=== PATIENT | male | born 1955 | race Caucasian/White ===

== ENCOUNTER 2017-02-22 13:31 | Emergency (ER) | payer OTHER ==
[2017-02-22 13:39] VITALS: BP 178/101
[2017-02-22] MEDS ORDERED: DEXAMETHASONE 10 MG/ML VIAL PO STA (13:58)
--- NOTE | 2017-02-22 14:01 | ED Physician Documentation ---
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 He felt the illness progressed into his chest and he has had muscle aches and pains feels generally ill has developed some diarrhea as well. Review of Systems Constitutional: reports: Chills, Myalgias, Sweats. denies: Fever Eyes: denies: Decreased vision Ears: denies: Ear pain Nose: reports: Rhinorrhea / runny nose, Congestion Throat: denies: Sore throat Cardiac: denies: Chest pain / pressure, Palpitations Respiratory: reports: Cough. denies: Dyspnea GI: reports: Diarrhea. denies: Abdominal Pain, Nausea, Vomiting : reports: Frequency. denies: Dysuria PD PAST MEDICAL HISTORY - Past Medical History Past Medical History: Yes Cardiovascular: Hypertension - Past Surgical History Past Surgical History: Yes General: Hiatal hernia repair - Present Medications Home Medications: Ambulatory Orders Medication Instructions Recorded Confirmed Atenolol [Tenormin] 25 mg PO DAILY 02/22/13 02/22/17 Furosemide [Lasix] 20 mg PO DAILY 02/22/13 02/22/17 Azithromycin [Zithromax] 250 mg PO DAILY #6 tablet 02/22/17 Cholecalciferol (Vitamin D3) 2,000 units PO DAILY 02/22/17 02/22/17 [Vitamin D3] Glipizide 25 mg PO DAILY 02/22/17 02/22/17 - Allergies Allergies/Adverse Reactions: Allergies Allergy/AdvReac Type Severity Reaction Status Date / Time No Known Drug Allergies Allergy Verified 02/22/17 13:38 - Social History Does the pt smoke?: No Smoking Status: Never smoker Does the pt drink ETOH?: No Does the pt have substance abuse?: No - Immunizations Immunizations are current?: No Immunizations: TDAP >10years/unknown PD ED PE NORMAL - Vitals Vital signs reviewed: Yes (Hypertensive) - General General: No acute distress, Well developed/nourished - HEENT HEENT: Atraumatic, PERRL, EOMI, Other - Neck Neck: Supple, no meningeal sign, No bony TTP - Cardiac Cardiac: RRR, No murmur - Respiratory Respiratory: No respiratory distress, Clear bilaterally - Abdomen Abdomen: Soft, Non tender - Back Back: No CVA TTP, No spinal TTP - Derm Derm: Normal color, Warm and dry, No rash - Extremities Extremities: No deformity, No edema - Neuro Neuro: No motor deficit, No sensory deficit - Psych Psych: Normal mood, Normal affect Results - Vitals Vitals: Vital Signs - 24 hr 02/22/17 13:35 Temperature 36.0 C L Heart Rate 64 Respiratory 20 Rate Blood Pressure 178/101 H O2 Saturation 97 Oxygen O2 Source Room air PD MEDICAL DECISION MAKING - ED course Complexity details: reviewed old records, considered differential, d/w patient ED course: 61-year-old male with a nonproductive cough and myalgiasOtitis media on examination. He does have a history of diabetes. He is on Lasix. I have asked patient to stop his Lasix been ill and he will check his blood sugars. He is given dexamethasone orally and we will place him on some azithromycin. I have encouraged him to hydrate excessively as he may have some elevation in his blood glucose with the dexamethasone. Departure - Departure Disposition: 01 Home, Self Care Clinical Impression: Otitis media Qualifiers: Otitis media type: suppurative Chronicity: acute Laterality: bilateral Recurrence: not specified as recurrent Spontaneous tympanic membrane rupture: without spontaneous rupture Qualified Code(s): H66.003 - Acute suppurative otitis media without spontaneous rupture of ear drum, bilateral Condition: Stable Instructions: ED Otitis Media Acute Adult Follow-Up: Kirit Parada MD [Primary Care Provider] - Prescriptions: Azithromycin [Zithromax] 250 mg PO DAILY #6 tablet Comments: Today it appears you have infection in both middle ears. This should improve over the next 2-3 days. While you are ill do not take your lasix as you are likely to get excessively dehydrated. Drink extra fluids. Forms: Activity restrictions
[2017-02-22] MEDS ORDERED: CHERRY SYRUP 10 ML UDC PO ONE (14:12)
[2017-02-22] MEDS ORDERED: DEXAMETHASONE 10 MG/ML VIAL ONE (14:12)
== END 2017-02-22 14:11 | disposition home or self-care (01) ==
LOC: ED 13:31
DX: H66.003 Acute suppurative otitis media without spontaneous rupture of ear drum, bilateral (principal); I10 Essential (primary) hypertension
CPT/HCPCS: 99283; A9270

== ENCOUNTER 2021-07-12 10:53 | Outpatient (CLI) | payer OTHER ==
--- NOTE | 2021-07-12 12:50 | XRAY Report ---
PROCEDURE: Knee 3 View RT INDICATIONS: KNEE PAIN TECHNIQUE: 3 views of the right knee(s) were acquired. COMPARISON: X-ray of the right knee 4 views, 10/31/2009 and 05/09/2009. FINDINGS: Bones: Old patellar fracture with internal fixation. No fractures or dislocations. No suspicious armin ny lesions. Mild degenerative joint disease. Soft tissues: No joint effusion. No suspicious soft tissue calcifications. IMPRESSION: 1. Old patellar fracture with internal fixation. 2. Mild degenerative joint disease. Reviewed by: Pradeep Butt MD on 07/12/2021 12:48 PM PST Approved by: Pradeep Butt MD on 07/12/2021 12:48 PM PST Station ID: [id number]
== END 2021-07-12 10:54 | disposition home or self-care (01) ==
LOC: DI 10:53
PROVIDERS: ATTEND Orthopaedic Surgery
DX: M17.11 Unilateral primary osteoarthritis, right knee (principal); Z87.81 Personal history of (healed) traumatic fracture

== ENCOUNTER 2024-06-21 11:42 | Inpatient (IN) ==
--- NOTE | 2024-06-21 13:18 | XRAY Report ---
PROCEDURE: XR Hip w/Pelvis 2-3V RT INDICATIONS: hip inj TECHNIQUE: 2 views of the hip were acquired. COMPARISON: None. FINDINGS: Bones: Cortical irregularity involving the lateral aspect of the right femoral head neck junction po ssibly representing a subcapital femoral neck fracture. No suspicious osseous lesion. Degenerative ch anges of the bilateral hips. Soft tissues: No suspicious soft tissue calcifications or masses. IMPRESSION: Possible nondisplaced subcapital femoral neck fracture of the proximal right femur. Consider further evaluation with CT to further evaluate. Reviewed by: Chet Vásquez MD on 06/21/2024 1:16 PM PST Approved by: Chet Vásquez MD on 06/21/2024 1:16 PM PST Station ID: [id number]
--- NOTE | 2024-06-21 13:18 | XRAY Report ---
PROCEDURE: XR Shoulder 2+V LT INDICATIONS: TRAUMA TECHNIQUE: 3 views of the shoulder were acquired. COMPARISON: None. FINDINGS: Bones: No acute fractures or dislocations. No suspicious bony lesions. Visualized ribs appear inta ct. Degenerative changes of the left acromioclavicular joint. Acromioclavicular and coracoclavicular intervals are maintained. Soft tissues: No suspicious soft tissue calcifications. The visualized lungs are within normal limi ts. IMPRESSION: No acute bony abnormality. Degenerative changes of the left acromioclavicular joint. If there is persistent clinical concern for a radiographically occult fracture, recommend repeat imag ing in 10 to 14 days with immobilization as clinically indicated. Reviewed by: Chet Vásquez MD on 06/21/2024 1:17 PM PST Approved by: Chet Vásquez MD on 06/21/2024 1:17 PM PST Station ID: [id number]
--- NOTE | 2024-06-21 13:21 | ED Physician Documentation ---
History of Present Illness Stated complaint Stated Complaint: LT SHOULDER PX, RT HIP PX Chief complaint Chief Complaint: Trauma Ext Additonal information Additional information: He has a longstanding work-related knee injury, has had 1 surgery and is slated for another. This was all related to a prior L&I claim with a work-related injury he says. About a week ago he was walking down a hill and his bad knee gave out on him and he fell and hit his left shoulder on the ground and also heard a pop in the right hip. No increase in his usual knee pain. His orthopedist is Dr. Shahid Arriola at [facility]. He declines anything for pain other than Tylenol right now. He is able to walk with a walker but usually is using a cane. Meds/Allgy Home Medications Ambulatory Orders Medication Instructions Recorded Confirmed cholecalciferol (vitamin D3) 50 2,000 units PO DAILY 02/22/17 06/21/24 mcg (2,000 unit) capsule (Vitamin D3) amlodipine 5 mg tablet (Norvasc) 5 mg PO DAILY 06/21/24 06/21/24 atorvastatin 10 mg tablet (Lipitor) 10 mg PO DAILY 06/21/24 06/21/24 empagliflozin 25 mg tablet 12.5 mg PO DAILY 06/21/24 06/21/24 glimepiride 4 mg tablet 4 mg PO DAILY 06/21/24 06/21/24 losartan 100 mg tablet 100 mg PO DAILY 06/21/24 06/21/24 sitagliptin 25 mg tablet 25 mg PO DAILY 06/21/24 06/21/24 Allergies Allergies Allergy/AdvReac Type Severity Reaction Status Date / Time No Known Drug Allergies Allergy Verified 06/21/24 12:15 [facility] Surgical History Surgical History (Updated 06/21/24 @ 13:32 by Annie Lyons, BAKARI, BSN) History of total right knee replacement Social History Social History Smoking Status: Never smoker Relationship: Do you feel safe in your home environment?: Yes Suffered physical, verbal, emotional, or financial abuse?: No History of Abuse: No Exam Constitutional normal general appearance and no apparent distress Extremities The left shoulder is nontender but he can only abduct to about 90 degrees. Right knee nontender. Quite tender over the right hip and a lot of pain with internal or external rotation. Results Vitals Vitals: Vital Signs - 24 hr 06/21/24 12:16 06/21/24 13:36 06/21/24 14:06 Temperature 36.2 C L Temperature Source Temporal Artery Scan Pulse Rate 76 Respiratory Rate 18 Blood Pressure 180/99 H O2 Saturation 98 O2 Source Room air Pain Intensity 9 9 3 06/21/24 15:42 06/21/24 18:23 06/21/24 19:21 Temperature Temperature Source Pulse Rate 65 80 Respiratory Rate 15 18 Blood Pressure 173/91 H 155/90 H O2 Saturation 97 98 O2 Source Room air Room air Pain Intensity 9 9 Oxygen O2 Source Room air Labs Labs: Laboratory Tests 06/21/24 14:43 WBC 12.9 H RBC 5.77 Hgb 16.3 Hct 51.0 MCV 88.4 MCH 28.2 MCHC 32.0 RDW 14.0 Plt Count 263 MPV 10.7 Neut # (Auto) 9.3 H Lymph # (Auto) 2.5 Sheridan # (Auto) 0.8 Eos # (Auto) 0.1 Baso # (Auto) 0.1 Absolute Nucleated RBC 0.00 Nucleated RBC % 0.0 PT 13.6 H INR 1.3 H Sodium 138 Potassium 3.9 Chloride 104 Carbon Dioxide 25 Anion Gap 9.0 BUN 22 H Creatinine 0.9 Estimated GFR (MDRD) 84 L Glucose 127 H Calcium 9.7 Rads (name of study) X-ray of the left shoulder demonstrates degenerative changes of the AC joint without fracture: Relevant Findings:: Final report received and EMP independent interpre tation of test Right hip x-ray concerning for a nondisplaced subcapital femoral neck fracture: Relevant Findings:: Final report received and EMP independent interpretation of test CT R Hip: Relevant Findings:: Final report received and EMP independent interpretation of test Interpretation: Comminuted mildly displaced fracture of the right greater trochanter with extension to the lateral aspect of the femoral neck. The medial cortex of the femoral neck is intact. PD Medical Decision Making ED course ED course: He presents after a fall about a week ago injuring his hip and shoulder. The shoulder x-ray was negative but the hip x-ray was concerning for a nondisplaced fracture. The hip CT does confirm a hip fracture. While we have orthopedics on, Dr. Haynes is not adept at hip fractures and recommended transfer. The patient was wanting to transfer anyway as he sees Dr. Arriola at [facility]. Spoke With his orthopedist, Dr. Arriola at [facility] who agrees with transfer and defers to the medicine service for admission. At approximately 4:20 PM the health screening unit registered nurse notified me that [facility] was pretty full and they were encouraging us to "look elsewhere." I discussed this with the patient who would prefer to wait as he is well-established and prefers Dr. Arriola. In our previous conversation Dr. Arriola had mentioned potentially an ED to ED transfer, at approximately 5:15 PM I spoke with Dr. Madrigal, the on-call ED physician at [facility] who is willing to accept but wanted to make sure the owens that be were okay with that and will call me back. Subsequently notified by nursing staff that they do not have capacity and they are emergency department either. Discussed with patient, he is still wanting to wait as opposed to broaden the search to other facilities. Given current hospital capacity in the region I am not sure expanding the search to other facilities would be necessarily quicker anyways. Care to overnight emergency physician at 10 PM shift change pending eventual transfer. Discharge Plan Discharge Patient Disposition: 02 Transfer Acute Care Hosp Condition: Stable Clinical Impression: Closed fracture of right hip Qualifiers: Encounter type: initial encounter Qualified Code(s): S72.001A - Fracture of unspecified part of neck of right femur, initial encounter for closed fracture Left shoulder strain Qualifiers: Encounter type: initial encounter Qualified Code(s): S46.912A - Strain of unspecified muscle, fascia and tendon at shoulder and upper arm level, left arm, initial encounter Stand Alone Forms: PCP List
[2024-06-21] MEDS: ACETAMINOPHEN 500 MG TABLET PO STA (13:36)
[2024-06-21 14:50] LABS: BASOPHILS # (AUTO) 0.1 10^3/uL (0.0-0.1); BASOPHILS % (AUTO) 0.5 %; EOSINOPHILS # (AUTO) 0.1 10^3/uL (0.0-0.7); EOSINOPHILS % (AUTO) 0.5 %; HGB - HEMOGLOBIN 16.3 g/dL (14.0-18.0); LYMPHOCYTES # (AUTO) 2.5 10^3/uL (1.5-3.5); LYMPHOCYTES % (AUTO) 19.6 %; MEAN CORPUSCULAR HEMOGLOBIN 28.2 pg (27.0-31.0); MEAN CORPUSCULAR VOLUME 88.4 fL (80.0-94.0); MEAN PLATELET VOLUME 10.7 fL (7.4-11.4); MONOCYTES # (AUTO) 0.8 10^3/uL (0.0-1.0); MONOCYTES % (AUTO) 6.4 %; NEUTROPHILS # (AUTO) 9.3 10^3/uL (1.5-6.6); NEUTROPHILS % (AUTO) 72.6 %; PLT - PLATELET COUNT 263 10^3/uL (130-450); RED BLOOD COUNT 5.77 10^6/uL (4.70-6.10); WHITE BLOOD COUNT 12.9 x10^3/uL (4.8-10.8)
[2024-06-21 14:57] LABS: INR 1.3 (0.8-1.2); PT - PROTHROMBIN TIME 13.6 secs (9.9-12.6)
[2024-06-21 15:09] LABS: CALCIUM 9.7 mg/dL (8.5-10.3); CREATININE 0.9 mg/dL (0.6-1.3); POTASSIUM 3.9 mmol/L (3.5-4.5)
--- NOTE | 2024-06-21 15:10 | CT Report ---
PROCEDURE: CT Lower Extremity RT WO INDICATIONS: hip inj, abn XR TECHNIQUE: Noncontrast 3-mm axial sections acquired from the distal tibial shaft to the talar dome, with coronal and sagittal reformats. For radiation dose reduction, the following was used: automated exposure c ontrol, adjustment of mA and/or kV according to patient size. COMPARISON: Pelvis x-ray 06/21/2024. FINDINGS: Image quality: Excellent. Bones: Comminuted mildly displaced fracture of the greater trochanter with extension to the lateral aspect of the femoral neck. The medial cortex of the femoral neck is intact. Soft tissues: Fat stranding around the fracture. No significant hematomas. Fat-containing right ingu inal hernia. Atherosclerotic vascular calcifications. Diverticulosis within the visualized colon with out evidence of acute diverticulitis. Normal appendix. Impression: Comminuted mildly displaced fracture of the right greater trochanter with extension to the lateral as pect of the femoral neck. The medial cortex of the femoral neck is intact. Reviewed by: Efrain Powers MD on 06/21/2024 3:09 PM PST Approved by: Efrain Powers MD on 06/21/2024 3:09 PM PST Station ID: [id number]
[2024-06-21] MEDS ORDERED: ONDANSETRON 4 MG/2 ML VIAL IVP PRN (15:54)
--- NOTE | 2024-06-21 16:13 | PHARMACY PROGRESS NOTE ---
Best Possible Medication History Admit Date and Time: Home Medications Medication Instructions Recorded Confirmed Type cholecalciferol (vitamin D3) 50 2,000 units PO DAILY 02/22/17 06/21/24 History mcg (2,000 unit) capsule (Vitamin D3) amlodipine 5 mg tablet (Norvasc) 5 mg PO DAILY 06/21/24 06/21/24 History atorvastatin 10 mg tablet (Lipitor) 10 mg PO DAILY 06/21/24 06/21/24 History empagliflozin 25 mg tablet 12.5 mg PO DAILY 06/21/24 06/21/24 History glimepiride 4 mg tablet 4 mg PO DAILY 06/21/24 06/21/24 History losartan 100 mg tablet 100 mg PO DAILY 06/21/24 06/21/24 History sitagliptin 25 mg tablet 25 mg PO DAILY 06/21/24 06/21/24 History Processed by: Pharmacy Medications reviewed in ED?: Yes Medication History completed: Yes Patient Interview: Completed Secondary Source(s): Written medication list [facility] Statement: As the person ultimately responsible for medication therapy, providers are able to order a medication from an existing home medication list in [facility] via the "Reconcile Routine" prior to Confirmation of that medication by collection support specialist. Such practice is discouraged except when the physician, in their clinical judgment, deems that a medical need exists for a medication without regard to previous use.
[2024-06-21] MEDS: ATORVASTATIN 10 MG TABLET PO STA (18:19)
[2024-06-21] MEDS: amLODIPine 5 MG TABLET PO STA ×2 (18:20→18:24)
[2024-06-21] MEDS: LOSARTAN 50 MG TABLET PO ONE ×2 (18:37→19:21)
[2024-06-21] MEDS: ACETAMINOPHEN 500 MG TABLET PO PRN (19:21)
--- NOTE | 2024-06-22 07:14 | ED Physician Documentation ---
ED Addendum Addendum Addendum: Patient endorsed to me by physician at 10pm shift change. ALIN. Patient endorsed to Dr. Hardin at 7am shift change. Discharge Plan Discharge Patient Disposition: 02 Transfer Acute Care Hosp Condition: Stable Clinical Impression: Closed fracture of right hip Qualifiers: Encounter type: initial encounter Qualified Code(s): S72.001A - Fracture of unspecified part of neck of right femur, initial encounter for closed fracture Left shoulder strain Qualifiers: Encounter type: initial encounter Qualified Code(s): S46.912A - Strain of unspecified muscle, fascia and tendon at shoulder and upper arm level, left arm, initial encounter Stand Alone Forms: PCP List
[2024-06-22] MEDS: PANTOPRAZOLE 40 MG TABLET PO SCH (07:41)
[2024-06-22] MEDS: amLODIPine 5 MG TABLET PO SCH (09:17)
[2024-06-22] MEDS: LOSARTAN 50 MG TABLET PO SCH (09:17)
[2024-06-22] MEDS: DOCUSATE SODIUM 250 MG CAPSULE PO SCH (09:18)
[2024-06-22] MEDS: ENOXAPARIN 40 MG/0.4 ML SYRINGE SUBQ SCH (09:18)
[2024-06-22] MEDS: ATORVASTATIN 10 MG TABLET PO SCH (09:18)
[2024-06-22] MEDS: CHOLECALCIFEROL 400 UNIT TABLET PO SCH (09:18)
--- NOTE | 2024-06-22 15:23 | ED Physician Documentation ---
ED Addendum Addendum Addendum: Seen at bedside. In good spirits. Still no bed at [facility]. Pt now open to look at other facilities, RADIOLOGY RECEPTIONIST will call around. Discharge Plan Discharge Patient Disposition: 02 Transfer Acute Care Hosp Condition: Stable Clinical Impression: Closed fracture of right hip Qualifiers: Encounter type: initial encounter Qualified Code(s): S72.001A - Fracture of unspecified part of neck of right femur, initial encounter for closed fracture Left shoulder strain Qualifiers: Encounter type: initial encounter Qualified Code(s): S46.912A - Strain of unspecified muscle, fascia and tendon at shoulder and upper arm level, left arm, initial encounter Stand Alone Forms: PCP List
--- NOTE | 2024-06-22 23:15 | ED Physician Documentation ---
ED Addendum Addendum Addendum: Patient endorsed to me by Dr. Lucio at 11 PM shift change. Boarding for transfer. No acute events overnight. Patient was endorsed to incoming daytime EDMD at 7 AM shift change. Discharge Plan Discharge Patient Disposition: 02 Transfer Acute Care Hosp Condition: Stable Clinical Impression: Closed fracture of right hip Qualifiers: Encounter type: initial encounter Qualified Code(s): S72.001A - Fracture of unspecified part of neck of right femur, initial encounter for closed fracture Left shoulder strain Qualifiers: Encounter type: initial encounter Qualified Code(s): S46.912A - Strain of unspecified muscle, fascia and tendon at shoulder and upper arm level, left arm, initial encounter Stand Alone Forms: PCP List
--- NOTE | 2024-06-23 09:38 | ED Physician Documentation ---
ED Addendum Addendum Addendum: 68-year-old male boarding in the emergency department with a left hip fracture. Still awaiting transfer to surrounding facilities. Orthopedics here is unable to operate on a hip fracture. Therefore the patient will still need to be transferred. Surrounding hospitals are at our above capacity, patient will be continued to be boarded in the emergency department. signed out to Dr. Vargas Discharge Plan Discharge Patient Disposition: 02 Transfer Acute Care Hosp Condition: Stable Clinical Impression: Closed fracture of right hip Qualifiers: Encounter type: initial encounter Qualified Code(s): S72.001A - Fracture of unspecified part of neck of right femur, initial encounter for closed fracture Left shoulder strain Qualifiers: Encounter type: initial encounter Qualified Code(s): S46.912A - Strain of unspecified muscle, fascia and tendon at shoulder and upper arm level, left arm, initial encounter Stand Alone Forms: PCP List
--- NOTE | 2024-06-23 11:53 | ED Physician Documentation ---
ED Addendum Addendum Addendum: He continues to board without end in sight. I discussed the case with Dr. Haynes again who is going to review with his partner and explore the ability to do surgery here versus discharge with touch toe weightbearing. We spoke initially at 11:53 AM and he will call me back. He did call me back and is planning to do the surgery here once the patient's been n.p.o. for a reasonable length of time (he ate about an hour or 2 ago.). Discharge Plan Discharge Patient Disposition: ED Transfer to [facility] Condition: Stable Clinical Impression: Closed fracture of right hip Qualifiers: Encounter type: initial encounter Qualified Code(s): S72.001A - Fracture of unspecified part of neck of right femur, initial encounter for closed fracture Left shoulder strain Qualifiers: Encounter type: initial encounter Qualified Code(s): S46.912A - Strain of u nspecified muscle, fascia and tendon at shoulder and upper arm level, left arm, initial encounter Interventions: ED Admission Assessment Last Done: 06/23/24 15:16
--- NOTE | 2024-06-23 13:06 | PREOP HISTORY & PHYSICAL ---
Surgical History & Physical Chief Complaint/HPI History of Present Illness: CC: RIGHT Femoral Neck Fracture HPI: 68yo M with past medical history of hypertension and diabetes presented to the [facility] emergency department on June 20, 2024 for right hip pain. He reports that he had a ground-level fall on June 13, 2025 while walking with his cane. He walked with a cane previously because of a problem he has had following a right total knee arthroplasty. When he fell he had immediate pain in his left shoulder and right hip. He believes he just sprained his left shoulder. He continued to weight-bear with a walker on the right lower extremity with right hip pain. Eventually he presented to the emergency department where they identified that he had this right femoral neck fracture. The emergency department attempted to transfer this patient for further care however they were having a difficult time obtaining acceptance for this patient. I was then consulted today for operative management of the right hip. Patient has been nonweightbearing of the right lower extremity for the last 3 days. He has minimal pain in the right hip. Home Meds and Allergies Active Medications Generic Name Dose Route Start Last Admin Trade Name Freq PRN Reason Stop Dose Admin Acetaminophen 1,000 mg 06/21/24 15:54 06/23/24 08:43 Acetaminophen 500 Mg Tablet PO 1,000 mg Q6H PRN Administration Mild Pain Or Fever>38c(100.4f) Amlodipine Besylate 5 mg 06/22/24 09:00 06/23/24 08:43 Amlodipine 5 Mg Tablet PO 5 mg DAILY ELIJAH Administration Atorvastatin Calcium 10 mg 06/22/24 09:00 06/23/24 11:41 Atorvastatin 10 Mg Tablet PO 10 mg DAILY ELIJAH Administration Cholecalciferol 800 unit 06/22/24 09:00 06/23/24 11:41 Cholecalciferol 400 Unit Tablet PO 800 unit DAILY ELIJAH Administration Docusate Sodium 250 mg 06/22/24 10:00 06/23/24 08:43 Docusate Sodium 250 Mg Capsule PO 250 mg DAILY ELIJAH Administration Enoxaparin Sodium 40 mg 06/22/24 09:00 06/23/24 08:44 Enoxaparin 40 Mg/0.4 Ml Syringe SUBQ 40 mg DAILY ELIJAH Administration Losartan Potassium 100 mg 06/22/24 09:00 06/23/24 08:43 Losartan 50 Mg Tablet PO 100 mg DAILY ELIJAH Administration Ondansetron HCl 4 mg 06/21/24 15:54 Ondansetron 4 Mg/2 Ml Vial IVP Q6HR PRN Nausea / Vomiting Pantoprazole Sodium 40 mg 06/22/24 07:00 06/23/24 08:43 Pantoprazole 40 Mg Tablet PO 40 mg QDAC ELIJAH Administration cholecalciferol (vitamin D3) 50 mcg (2,000 unit) capsule (Vitamin D3) 2,000 units PO DAILY 02/22/17 amlodipine 5 mg tablet (Norvasc) 5 mg PO DAILY 06/21/24 atorvastatin 10 mg tablet (Lipitor) 10 mg PO DAILY 06/21/24 empagliflozin 25 mg tablet 12.5 mg PO DAILY 06/21/24 glimepiride 4 mg tablet 4 mg PO DAILY 06/21/24 losartan 100 mg tablet 100 mg PO DAILY 06/21/24 sitagliptin 25 mg tablet 25 mg PO DAILY 06/21/24 Allergies Allergy/AdvReac Type Severity Reaction Status Date / Time No Known Drug Allergies Allergy Verified 06/21/24 12:15 Vital Signs O2 Saturation: 97 Patient Review Patient Review Pertinent Tests Reviewed [facility] Surgical History Surgical History (Updated 06/21/24 @ 13:32 by Annie Lyons RN, BSN) History of total right knee replacement Social History Social History Smoking Status: Never smoker Relationship: Do you feel safe in your home environment?: Yes Suffered physical, verbal, emotional, or financial abuse?: No History of Abuse: No Exam Exam RIGHT Hip: Inspection: No erythema, swelling, bruising, atrophy. ROM deferred Neurovascular exam: 5/5 q/h/ta/gc/ehl; SILT s/s/sp/dp/t, 2+ dp Imaging: RIGHT hip x-rays on demonstrate a tension sided femoral neck fracture. RIGHT hip CT scan: Demonstrates the tension sided femoral neck fracture. There is also comminution at the greater trochanter. Assessment & Plan Assessment & Plan Assessment & Plan: 68M presents with history and imaging consistent with a right femoral neck fracture. I had a long conversation with this patient with regards to his findings. I explained that he has had a partial trial of life and that he was putting weight through the fractured femoral neck and it has not displaced. However I would be more confident if we are able to further support this femoral neck with cannulated screws. If this fracture goes on to displace he would require a much more extensive surgery to include a hemiarthroplasty versus total hip arthroplasty. He elected to move forward with the right hip cannulated screw fixation. The risk, benefits and alternatives of the procedure were discussed with the patient today include bleeding, infection, damage to surrounding structures, ongoing hip pain, nonunion, malunion, need for additional procedures and anesthesia risk such as heart attack, stroke and . The patient understood these risks and 1 move forward with the procedure. Consent was completed at today's visit. PLAN: Consented for right hip operative management for his right femoral neck fracture. The patient had the treatment plan explained, questions answered and seemed sa tisfied with the plan. There were no apparent barriers to communication. The documentation in this note may have been entered with the assistance of computer voice recognition and dictation software. Therefore, it may contain unintended errors in text, spelling, punctuation, or grammar. Poncho Haynes MD Orthopedic Surgeon
[2024-06-23] MEDS ORDERED: BUPIVACAINE 0.25% PF 10 ML VIAL ONE (13:34)
[2024-06-23] MEDS ORDERED: BUPIVACAINE 0.25% PF 30 ML VIAL ONE (13:34)
[2024-06-23] MEDS ORDERED: LIDOCAINE 1%-EPI 1:100000 20 ML MDV ONE (13:34)
[2024-06-23] MEDS ORDERED: BACITRACIN ZINC OINT 1 PACKET TOP ONE (13:35)
[2024-06-23] MEDS ORDERED: ONDANSETRON 4 MG/2 ML VIAL ONE (14:00)
[2024-06-23] MEDS ORDERED: PROPOFOL 200 MG/20 ML VIAL IVP ONE (14:00)
[2024-06-23] MEDS ORDERED: ROCURONIUM 50 MG/5 ML VIAL ONE (14:29)
[2024-06-23] MEDS ORDERED: fentaNYL 100 MCG/2 ML VIAL ONE ×2 (14:50→16:08)
--- NOTE | 2024-06-23 15:04 | ANESTHESIA PROCEDURE NOTE ---
Pre-Anesthesia VS, & Labs Diagnosis Surgical Diagnosis:: R hip fracture Procedure Procedure: R hip cannulated screws Vitals Vital Signs: Temp Pulse Resp BP Pulse Ox 36.8 C 69 15 180/115 H 98 06/23/24 08:00 06/23/24 14:33 06/23/24 14:33 06/23/24 14:33 06/23/24 14:33 Height (in): 6 ft Weight (kg): 110 kg Body Mass Index: 32.8 BMI Classification: Obese NPO NPO: Other Last Food Intake: 929 Lab Results Current Lab Results: Laboratory Tests 06/23/24 14:28: POC Whole Bld Glucose 125 06/21/24 14:43: WBC 12.9 H, RBC 5.77, Hgb 16.3, Hct 51.0, MCV 88.4, MCH 28.2, MCHC 32.0, RDW 14.0, Plt Count 263, MPV 10.7, Neut # (Auto) 9.3 H, Lymph # (Auto) 2.5, [place] # (Auto) 0.8, Eos # (Auto) 0.1, Baso # (Auto) 0.1, Absolute Nucleated RBC 0.00, Nucleated RBC % 0.0, PT 13.6 H, INR 1.3 H, Sodium 138, Potassium 3.9, Chloride 104, Carbon Dioxide 25, Anion Gap 9.0, BUN 22 H, Creatinine 0.9, Estimated GFR (MDRD) 84 L, Glucose 127 H, Calcium 9.7 Lab results reviewed: Yes 06/21/24 14:43 06/21/24 14:43 Meds/Allgy Home Medications Ambulatory Orders Medication Instructions Recorded Confirmed cholecalciferol (vitamin D3) 50 2,000 units PO DAILY 02/22/17 06/21/24 mcg (2,000 unit) capsule (Vitamin D3) amlodipine 5 mg tablet (Norvasc) 5 mg PO DAILY 06/21/24 06/21/24 atorvastatin 10 mg tablet (Lipitor) 10 mg PO DAILY 06/21/24 06/21/24 empagliflozin 25 mg tablet 12.5 mg PO DAILY 06/21/24 06/21/24 glimepiride 4 mg tablet 4 mg PO DAILY 06/21/24 06/21/24 losartan 100 mg tablet 100 mg PO DAILY 06/21/24 06/21/24 sitagliptin 25 mg tablet 25 mg PO DAILY 06/21/24 06/21/24 Allergies Allergies Allergy/AdvReac Type Severity Reaction Status Date / Time No Known Drug Allergies Allergy Verified 06/21/24 12:15 [facility] Medical History Medical History (Updated 06/23/24 @ 15:02 by Ila Delgadillo CRNA) DESTIN (obstructive sleep apnea) Diabetes type 2 Hypertension Surgical History Surgical History (Updated 06/21/24 @ 13:32 by Annie Lyons, RN, BSN) History of total right knee replacement Social History Social History Smoking Status: Never smoker Relationship: Do you feel safe in your home environment?: Yes Suffered physical, verbal, emotional, or financial abuse?: No History of Abuse: No Anesthesia Exam (Expanded) Exam General: Alert and Oriented x3 Dental: Dentures full Upper, Partials Lower and Poor dentition Mouth Openin Fingerbreadth Neck Mobility: Normal Mallampati classification: II Thyromental Distance: less than 4 cm Respiratory: Lungs clear Cardiovascular: Regular rate Mental/Cognitive Status: Alert/Oriented X3 Plan Plan Anesthesia Type: General Consent for Procedure(s) Verified and Reviewed: Yes Code Status: Attempt Resuscitation ASA Classification ASA classification: 3-Severe systemic disease Is this case an emergency?: Yes
[2024-06-23] MEDS ORDERED: SUCCINYLCHOLINE 200 MG/10 ML VIAL ONE (15:21)
[2024-06-23] MEDS ORDERED: MIDAZOLAM 2 MG/2 ML VIAL ONE (15:21)
[2024-06-23] MEDS ORDERED: ceFAZolin 1 GM VIAL ONE (15:50)
[2024-06-23] MEDS ORDERED: DEXAMETHASONE 4 MG/ML VIAL ONE (15:50)
[2024-06-23] MEDS ORDERED: SODIUM CHLORIDE 0.9% 10 ML VIAL IVP ONE (15:51)
[2024-06-23] MEDS ORDERED: ePHEDrine 50 MG/ML VIAL IVP ONE (15:51)
[2024-06-23] MEDS ORDERED: SUGAMMADEX 200 MG/2 ML VIAL IVP ONE (16:13)
[2024-06-23] MEDS ORDERED: ONDANSETRON 4 MG/2 ML VIAL IVP PRN ×2 (16:51→17:03)
[2024-06-23] MEDS ORDERED: METOCLOPRAMIDE 10 MG/2 ML VIAL IVP PRN ×2 (16:51→17:03)
[2024-06-23] MEDS ORDERED: MORPHINE 2 MG/ML CARPUJECT IVP PRN ×2 (16:51→17:03)
[2024-06-23] MEDS ORDERED: ePHEDrine 50 MG/ML VIAL IVP PRN ×2 (16:51→17:03)
[2024-06-23] MEDS ORDERED: ATROPINE ABBOJECT 1 MG/10 ML SYRINGE IVP PRN ×2 (16:51→17:03)
[2024-06-23] MEDS ORDERED: NALOXONE 0.4 MG/ML VIAL IVP PRN ×2 (16:51→17:03)
[2024-06-23] MEDS ORDERED: HYDROmorphone 0.5 MG/0.5 ML SYRINGE IVP PRN ×2 (16:51→17:03)
[2024-06-23] MEDS ORDERED: fentaNYL 100 MCG/2 ML VIAL IVP PRN ×2 (16:51→18:06)
[2024-06-23] MEDS ORDERED: KETOROLAC 30 MG/ML VIAL ONE (16:53)
[2024-06-23] MEDS: fentaNYL 100 MCG/2 ML VIAL IVP PRN (17:11)
--- NOTE | 2024-06-23 17:28 | OPERATIVE REPORT ---
Operative Report General Procedure Data: Operation Date: 06/23/24 15:15 Proposed Procedures p Hip Pinning(Right) - Poncho Haynes MD Actual Procedures p Hip Pinning(Right) - Poncho Haynes MD Pre-Op Diagnosis: LT SHOULDER PX, RT HIP PX Anesthesia Type General Case Staff Anesthesia Provider: Reginaldo Marley Anesthesia Provider: Ila Delgadillo Assisting Provider: Gisselle Bazzi Assisting Provider: Stephie Mejia Rep: YUSUF HOLCOMB. Rep: PRIETO VELÁSQUEZ. Case Times Into Recovery: 06/23/24 17:02 Procedure Start: 06/23/24 16:07 Procedure End: 06/23/24 16:58 Time out: 06/23/24 16:05 Pre-Op Diagnosis: RIght Hip Fracture Post Op Diagnosis: JULIA Procedure Note Complications: None Other Other Information/Narrative: Op Note Date of Procedure:06/23/24 Pre-Op Diagnosis: RIGHT Femoral Neck Fracture Post-Op Diagnosis: RIGHT Femoral Neck Fracture Procedure Closed reduction and cannulated screw fixation of the RIGHT femoral neck fracture Surgeon: Poncho Haynes MD Co-Surgeon: Gisselle Bazzi DO Retail Project Merchandiser in OR: LIZZ Moe Physician Retail Project Merchandiser was used throughout the entirety of the case. They assisted with room set up, patient positioning, draping, retraction, reduction, fixation and closure. They were essential for the success of the case. Anesthesia Type: General EBL: 20 cc Urine Output : Specimens Removed: None Complications: None Implants/Grafts: 3 cannulated 7.0mm cannulated screws Drains: No lines, drains, or airways are recorded for this episode. Findings: Narrative: The patient was taken to the OR and administered anesthetic and preoperative antibiotics. They were placed on the fracture table with RIGHT leg in traction boot. SCD device placed on the nonoperative leg and placed with the hip flexed above the operative leg. The hip was already in anatomic alignment so no reduction was necessary. Standard prep and drape was done. A standard timeout was performed. A K wire was laid over the anterior hip and fluoroscopy was utilized to determine the location of the lateral incision. A 2 inch incision was made through the skin in line with the planned trajectory of guidewires over the center of the lateral proximal femur. IT band was incised sharply. 3 guidewires for cannulated screws were then placed taking care to stay above the lesser trochanter. The first was placed along the inferior neck. Two additional guidewires were placed superiorly along the periphery of the neck. Appropriate positions were confirmed on fluoroscopic AP and lateral views. The wires were measured. The cortex was drilled for each screw and screws placed. Final x-rays confirmed satisfactory position of the implants and maintenance of fracture position. The wound was irrigated and closed with 0 Vicryl for the IT band, 2-0 Vicryl in the dermis and 3-0 Nylon for the skin. A sterile dressing was applied. Patient was then transferred to recovery room bed in stable condition. Plan: Xrays in PACU. Weight Bearing as tolerated. DVT prophylaxis. Physical therapy. Follow-up in 2 weeks for wound check. Poncho Haynes MD
--- NOTE | 2024-06-23 17:53 | ANESTHESIA POST OP EVALUATION ---
Anesthesia Post Eval Post Anesthesia Eval Vitals: Last Vital Signs Temp 36.0 C L 06/23/24 17:30 Pulse 67 06/23/24 17:35 Resp 18 06/23/24 17:35 BP 145/77 H 06/23/24 17:35 Pulse Ox 97 06/23/24 17:35 CV Function Including HR & BP: Stable Pain Control: Satisfactory Nausea & Vomiting: Negative Mental Status: Baseline Respiratory Status: Airway Patent Hydration Status: Satisfactory Anesthesia Complications: None
[2024-06-23] MEDS ORDERED: LACTATED RINGERS 1,000 ML IV SCH (18:00)
[2024-06-23] MEDS: NS W/20 MEQ KCL 1,000 ML IV SCH (18:15)
[2024-06-23] MEDS: oxyCODONE 5 MG TABLET PO PRN (18:16)
--- NOTE | 2024-06-23 20:14 | XRAY Report ---
PROCEDURE: XR Hip w/Pelvis 2-3V RT INDICATIONS: post operative imaging TECHNIQUE: 2 views of the hip were acquired. COMPARISON: CT right hip 06/21/2024 FINDINGS: Bones: 3 screws spanning the right femoral neck. No hardware fracture. Prior fracture at the right f emoral neck and greater trochanter. No dislocations. No suspicious bony lesions. Soft tissues: No suspicious soft tissue calcifications or masses. IMPRESSION: Expected appearance of the right hip screw fixation. Reviewed by: Juvenal Daley MD on 06/23/2024 8:13 PM PST Approved by: Juvenal Daley MD on 06/23/2024 8:13 PM PST Station ID: [id number]
[2024-06-23] MEDS: ACETAMINOPHEN 500 MG TABLET PO SCH (21:09)
[2024-06-23] MEDS: ASPIRIN EC 81 MG TABLET PO SCH (21:10)
[2024-06-23] MEDS: ceFAZolin (2G) 2 GM in SODIUM CHLORIDE 0.9% MINIBAG 100 ML IV SCH (21:10)
[2024-06-23] MEDS: DOCUSATE SODIUM 100 MG CAPSULE PO SCH (21:10)
[2024-06-24] MEDS: GLIMEPIRIDE 2 MG TABLET PO SCH (08:48)
[2024-06-24] MEDS: LOSARTAN 50 MG TABLET PO SCH (09:44)
[2024-06-24] MEDS: amLODIPine 5 MG TABLET PO SCH (09:44)
[2024-06-24] MEDS: EMPAGLIFLOZIN 25 MG PO SCH (09:45)
--- NOTE | 2024-06-24 14:17 | POST OP PROGRESS NOTE ---
Subjective General Admit Date: 06/23/24 Procedure Date: 06/23/24 Post Op Days: 1 Procedure Performed: Stabilization of right hip incomplete fracture Other Other Information/Narrative: 68 yo M s/p right hip fixation POD 1. He denies f/c/ns/cp/sob. His pain is well controlled. He ambulated with PT today with a walker. PE: VSS R hip: Dressing c/d/i. SILT s/s/t/dp/sp Fires ta/gs/ehl/fhl a/p: s/p R hip fixation - patient is cleared for discharge - F/u in 2 weeks for wound check and suture removal - WBAT with walker or crutches
[2024-06-24] MEDS: LACTATED RINGERS 1,000 ML IV SCH (16:48)
--- NOTE | 2024-06-24 20:11 | XRAY Report ---
PROCEDURE: FL OR C-Arm Procedure INDICATIONS: Surgical Procedure FLUORO TIME: 0.7 MIN 252.16 uGym2 TECHNIQUE: Intraoperative images. COMPARISON: Hip x-ray 06/23/2024 FINDINGS: Intraoperative images demonstrating right femoral fixation. Hardware is intact. There is good anatomi c alignment. IMPRESSION: Intraoperative right hip fixation. Reviewed by: Roxie Haque MD on 06/24/2024 8:09 PM [facility] Approved by: Roxie Haque MD on 06/24/2024 8:09 PM PST Station ID: [id number]
[2024-06-25 08:05] VITALS: BP 168/83; TEMP 97.5; O2SAT 94
--- NOTE | 2024-06-25 09:15 | POST OP PROGRESS NOTE ---
Subjective General Admit Date: 06/23/24 Procedure Date: 06/23/24 Post Op Days: 2 Procedure Performed: Stabilization of right hip incomplete fracture Ortho Surgical Progress Note Problem List Problem List: 68 yo M s/p right hip fixation POD 2. He denies f/c/ns/cp/sob. His pain is well controlled. He ambulated with PT yesterday with a walker. He has a scheduled ride home this afternoon. PE: VSS R hip: Dressing c/d/i. SILT s/s/t/dp/sp Fires ta/gs/ehl/fhl a/p: s/p R hip fixation - patient is cleared for discharge - F/u in 2 weeks for wound check and suture removal - TTWB with walker or crutches Poncho Haynes MD Exam Exam RIGHT Hip: Inspection: No erythema, swelling, bruising, atrophy. ROM deferred Neurovascular exam: 5/5 q/h/ta/gc/ehl; SILT s/s/sp/dp/t, 2+ dp Imaging: RIGHT hip x-rays on demonstrate a tension sided femoral neck fracture. RIGHT hip CT scan: Demonstrates the tension sided femoral neck fracture. There is also comminution at the greater trochanter.
--- NOTE | 2024-06-25 09:31 | Discharge Summary ---
"Discharge Summary Admit Date: 06/23/24 Discharge Date: 06/25/24 Discharging Provider: Poncho Haynes Code Status: Attempt Resuscitation DIAGNOSES Admission Diagnoses: Right Hip Fracture Discharge Diagnoses with Status of Each Condition: Right Hip Fracture s/p RIght hip cannulated screw fixation Left shoulder strain HPI History of Present Illness: See H&P CONSULTS | PROCEDURES Consultations: Orthopedics consulted for operative management of the right hip fracture Procedures: Closed reduction and open pinning of the right femoral neck fracture HOSPITAL COURSE Hospital Course: 68M admitted to the hospital from the ED on 06/23/24 for operative management of the right hip fracture. He underwent a right hip pinning on 06/23/24. He was transferred to the floor for antibiotics and pain control. On 06/24/24, he was seen by physical therapy and OT who recommended discharge to home with home health. Pt elected to stay another night due to lack of transportation home. He was seen again on 06/25/24 and will be discharge to home later this afternoon. Upon discharge his pain was well controlled and he was tolerating a diet. He was able to safely move about the [place] with a walker. ALLERGIES Allergies Allergy/AdvReac Type Severity Reaction Status Date / Time No Known Drug Allergies Allergy Verified 06/21/24 12:15 MEDICATIONS Ambulatory Orders Medication Instructions Recorded Confirmed cholecalciferol (vitamin D3) 50 2,000 units PO DAILY 02/22/17 06/21/24 mcg (2,000 unit) capsule (Vitamin D3) amlodipine 5 mg tablet (Norvasc) 5 mg PO DAILY 06/21/24 06/21/24 atorvastatin 10 mg tablet (Lipitor) 10 mg PO DAILY 06/21/24 06/21/24 empagliflozin 25 mg tablet 12.5 mg PO DAILY 06/21/24 06/21/24 glimepiride 4 mg tablet 4 mg PO DAILY 06/21/24 06/21/24 losartan 100 mg tablet 100 mg PO DAILY 06/21/24 06/21/24 sitagliptin 25 mg tablet 25 mg PO DAILY 06/21/24 06/21/24 acetaminophen 325 mg tablet 975 mg (3 x 325 mg) PO Q8H #120 06/24/24 (Tylenol) tabs aspirin 81 mg chewable tablet 81 mg PO BID #60 tabs 06/24/24 docusate sodium 100 mg capsule 200 mg (2 x 100 mg) PO BID PRN 06/24/24 (Colace) constipation #40 caps ondansetron 4 mg disintegrating 4 mg PO Q8H PRN nausea and 06/24/24 tablet vomiting #12 tabs oxycodone 5 mg tablet 5 mg PO Q4H #25 tabs 06/24/24 acetaminophen 500 mg tablet 1,000 mg (2 x 500 mg) PO TID pain 06/25/24 #180 tabs aspirin 81 mg tablet,delayed 81 mg PO BID #84 tabs 06/25/24 release docusate sodium 100 mg capsule 100 mg PO BID #20 caps 06/25/24 oxycodone 5 mg tablet 5 mg PO Q6HR PRN Severe 06/25/24 Breakthrough pain(8-10) #20 tabs PHYSICAL EXAM AT DISCHARGE General Appearance: positive No acute distress Physical Exam Other/Comments: Right hip. Dressing C/D/I NVI in S/S/DP/Sp/T nerve distributions Fires TA/[facility] 06/21/24 14:43 06/21/24 14:43 FOLLOW UP Follow Up: This pt will follow up with the ortho clinic in 2 weeks. TIME SPENT Time Spent in Discharge (Minutes): 45 Discharge Plan Discharge Patient Disposition: [facility], Self Care Condition: Stable Medically Cleared Date:: 06/24/24 Prescriptions: New aspirin 81 mg Tablet,Delayed Release (Dr/Ec) 81 mg PO BID Qty: 84 0RF acetaminophen 500 mg Tablet 1,000 mg PO TID Qty: 180 0RF docusate sodium 100 mg Capsule 100 mg PO BID Qty: 20 0RF oxycodone 5 mg Tablet 5 mg PO Q6HR PRN (Reason: Severe Breakthrough pain(8-10)) Qty: 20 0RF Continued acetaminophen [Tylenol] 325 mg tablet 975 mg PO Q8H Qty: 120 0RF oxycodone 5 mg tablet 5 mg PO Q4H Qty: 25 0RF docusate sodium [Colace] 100 mg capsule 200 mg PO BID PRN (Reason: constipation) Qty: 40 0RF ondansetron 4 mg tablet,disintegrating 4 mg PO Q8H PRN (Reason: nausea and vomiting) Qty: 12 0RF aspirin 81 mg tablet,chewable 81 mg PO BID Qty: 60 0RF cholecalciferol (vitamin D3) [Vitamin D3] 2,000 UNIT capsule 2,000 units PO DAILY atorvastatin [Lipitor] 10 mg tablet 10 mg PO DAILY empagliflozin 25 mg tablet 12.5 mg PO DAILY glimepiride 4 mg tablet 4 mg PO DAILY losartan 100 mg tablet 100 mg PO DAILY amlodipine [Norvasc] 5 mg tablet 5 mg PO DAILY sitagliptin 25 mg tablet 25 mg PO DAILY Activity Restrictions: Toe Touch Weight Bearing Activity Restrictions/Additional Instructions: Hip Pinning and Femoral Neck Fracture Postoperative Protocol [facility] Team have createdpostoperativefracture protocols for our patients. These are based on the latest orthopedic science and literature in order to give patients the most up to date care. Their content is designed to explain what type of injury was sustained, the type of surgery that was done and simple instructions for weight bearing, wound care, physical therapy, medicine and diet issues. Patients will hear similar information in eachpostoperativevisit but it is easy to forget what is said. The following protocol is designed to help patients in their healing with a single resource for frequently asked questions. What Was Broken Your hip is a ball and socket joint. You broketheball of your hip which is the top of the bone called the femur. The type of break you had is called afemoral neckfracture. What Was Done in Surgery Yourhip fracturewas fixed withthree stainless steel screws. This type of surgery is done for less severe femoral neck fractures to avoid the risks of longer procedures with bigger incisions like hemiarthroplasty. Home Health vs [facility] vs Rehabilitation Hospital Most patients stay in the hospital after hip surgery for 1-2 days. Some are able to go home unassisted. Others can go home with a Home Health Agency checking in on them to help with bathing and therapy. If a patient is unsafe on their own, they will need to go to a retirement facility or rehabilitation hospital. In the hospital you will meet with physical therapists, occupational therapists, social workers and physical medicine and rehabilitation doctors who will help find which solution is best. Follow Up Appointment You should see your surgeon or his physician visual merchandising assistant 10-14 days after surgery. Usually, this appointment is made when you schedule surgery. You will be seen at 2 weeks, 6 weeks and 3 months from surgery where the provider will examine you and x-rays will be taken to follow bone healing. Wound Care Your wound was closed with either sutures or nacho. After 4 days you can take off the dressing. If the wound is dry, you do not need to cover it with a new bandage. If it is leaking, replace dressing with a clean gauze pad and tape. Showering You may shower 4 days after surgery. Your dressing from surgery is waterproof. If it gets wet, remove the bandage, and place a new one. Do not immerse your wound in a bath or hot tub until your stiches or nacho are removed Pain Control You have been given a prescription for narcotic pain medication. It is ok to take anti-inflammatory medicine like Motrin (ibuprofen) or Tylenol (acetaminophen) as well. Do not take more than 4 grams of Tylenol a day or it can hurt your internal organs. Diet Eat a well-balanced diet. If you are diabetic keep your blood sugars well controlled. High blood sugar can put you at risk for infection, wound complications and the bone not healing (nonunion). Sutures/Nacho Your wound has been closed with sutures or nacho depending on your surgeons preference. They will be removed at your first postoperative follow up appointment 10-14 days after surgery. Weight Bearing You can be toe touch weight bearing immediately after surgery. You will have pain in your hip while it heals but it is safe to walk on it. Move your hip, knee, and ankle as much as possible to avoid getting stiff. Blood Clot Prophylaxis Patients with pelvis and leg fractures are at risk to get blood clots in the legs that can dislodge and travel in the bloodstream to the lungs causing disability or . There are several ways to decrease the risk of this complication. In the hospital you have pneumatic compression devices on your legs. Once discharged home take aspirin for 6 weeks. Walking and moving as much as you can is also preventative. Physical Therapy Most patients with hip fractures do not require physical therapy other than gait training to make sure you are using your assistive devices like a walker or cane correctly. Most patients need about 3-4 months of therapy to regain their preinjury range of motion and strength. Return to Work Patients can usually return to a desk job or light duty after a few days. Return without restriction to jobs that require heavy lifting or manual labor usually takes about 12 weeks Driving You should not drive a car if you are still taking narcotic pain medication. Just remember that your reaction time will be slow for first 6 weeks so do not tailgate or drive too fast Hardware Removal The three screws usually stay in for life and are not routinely removed. If the fracture does not heal or you develop hip arthritis in the future the screws will be removed so a hip replacement can be done. A very small number of patients have pain at the head of the screws and have them removed a year after insertion, but this can place them at increased risk to rebreak the hip. Healing Time Hip fractures treated with surgery take about 3 months to heal completely. Younger patients heal slightly faster and older patients or those with diabetes take slightly longer to heal. Diet: Regular Health Concerns: You were admitted to the hospital for a right hip fracture Care Plan Goals: Return to independent ambulation as per your baseline Assessment: The above instructions were discussed with the patient. Written instructions were provided as a reminder. Plan of Treatment: Right hip operative fixation with cannulated hip screws Print Language: Kiswahili Patient Instructions: Surgery Anesthesia After Stand Alone Forms: PCP List Follow-up Care: Poncho Haynes MD [Provider Admit Priv/Credential] -"
== END 2024-06-25 13:19 | disposition home or self-care (01) | DRG 482 ==
LOC: ED 11:42 → SDS 06-23 13:17 → MS3 06-23 13:19 → SDS 06-23 15:17 → ICU 06-23 18:10 → MS2 06-24 14:50
PROVIDERS: ADMIT Orthopaedic Surgery; ATTEND Orthopaedic Surgery
DX: W19.XXXA Unspecified fall, initial encounter; Z79.84 Long term (current) use of oral hypoglycemic drugs; I10 Essential (primary) hypertension; Z96.651 Presence of right artificial knee joint; S72.001A Fracture of unspecified part of neck of right femur, initial encounter for closed fracture; Z79.82 Long term (current) use of aspirin; Y92.9 Unspecified place or not applicable; S46.912A Strain of unspecified muscle, fascia and tendon at shoulder and upper arm level, left arm, initial encounter; E11.9 Type 2 diabetes mellitus without complications; Y99.0 Civilian activity done for income or pay; Y93.01 Activity, walking, marching and hiking; Z79.899 Other long term (current) drug therapy